=== PATIENT | female | born 1965 | race African-American/Black ===

== ENCOUNTER 2016-11-20 17:05 | Emergency (ER) | payer BC, OTHER ==
[~2016-11-20] VITALS: Ht 162.6 cm; Wt 131.1 kg
[~2016-11-20 17:05] MED LIST: AMLODIPINE-OLM1 EAC3 PO; HYDROCODONE-AP1 EAC6 PO; KEFLEX500 MG PO; PHENERGAN 25 MG25 M1 PO; VALIUM5 MG PO
[2016-11-20] MEDS ORDERED: NORCO 5-325 TA1 EACH PO (18:30)
== END 2016-11-20 19:00 | disposition home or self-care (01) ==
LOC: ER 17:05
DX: R07.89 Other chest pain (principal); I10 Essential (primary) hypertension; Z45.2 Encounter for adjustment and management of vascular access device; Z90.49 Acquired absence of other specified parts of digestive tract; Z85.3 Personal history of malignant neoplasm of breast; V43.52XA Car driver injured in collision with other type car in traffic accident, initial encounter; Y93.I9 Activity, other involving external motion; Y92.89 Other specified places as the place of occurrence of the external cause; Y99.8 Other external cause status

== ENCOUNTER 2017-03-30 12:18 | Inpatient (IN) | payer BC, OTHER ==
[~2017-03-30] VITALS: Ht 162.6 cm; Wt 135.2 kg
--- NOTE | ~2017-03-30 | 2DMMODE ---
[facility] [address] [place] [address] 2 D/M-MODE ECHOCARDIOGRAM Name: RICHY MCKENNA Room #: 451-P ADM IN M.R.#: [id number] Admission: 03/30/17 Attend Phys: Crista Curran Discharge: Date of : 67 Date of Service: 04/01/17 1029 Report #: [id number] THIS REPORT FOR: //name// APPROVED REPORT Study performed: 04/01/2017 08:39:58 EXAM: Comprehensive 2D, Doppler, and color-flow Echocardiogram Patient Location: Echo lab Room #: [facility] Status: routine BSA: 2.32 HR: 54 bpm BP: 184/97 mmHg Other Information Study Quality: Adequate Indications Dyspnea Chest Pain Hypertension/HDD 2D Dimensions LVEF(%): 62.69 (>50%) IVSd: 13.09 (7-11mm) LVOT Diam: 22.61 (18-24mm) LVDd: 43.88 mm PWd: 12.85 (7-11mm) Ascending Ao: 32.99 (22-36mm) LVDs: 29.11 (25-40mm) Aortic Root: 30.38 mm IVC: 14.00 mm Quigley's LVEF: 62.69 % Volumes Left Atrial Volume (Systole) Single Plane 4CH: 27.33 mL Single Plane 2CH: 48.81 mL LA ESV Index: 18.00 mL/m2 Aortic Valve AoV Peak Ameya.: 1.12 m/s AO Peak Gr.: 4.98 mmHg LVOT Max P.91 mmHg LVOT Max V: 1.11 m/s ANITA Vmax: 3.99 cm2 Mitral Valve E/A Ratio: 1.1 [facility] [place] [address] [place] [address] 2 D/M-MODE ECHOCARDIOGRAM Name: CLARISARICHY M Room #: 451-P [facility] IN [facility]#: [id number] Admission: 03/30/17 Attend Phys: Crista Curran Discharge: Date of : 67 Date of Service: 04/01/17 1029 Report #: [id number] MV Decel. Time: 248.96 ms MV E Max Ameya.: 0.81 m/s MV A Ameya.: 0.71 m/s MV PHT: 72.20 ms IVRT: 96.89 ms Pulmonary Valve PV Peak Ameya.: 0.84 m/s PV Peak Gr.: 2.85 mmHg Pulmonary Vein P Vein S: 0.40 m/s P Vein A: 0.20 m/s P Vein D: 0.36 m/s P Vein A Dur.: 87.7 msec P Vein S/D Ratio: 1.11 Left Ventricle The left ventricle is normal size. Mild concentric left ventricular hypertrophy. The left ventricular systolic function is normal. The left ventricular ejection fraction is within the normal range. LVEF is 60-65%. Grade II - pseudonormal filling dynamics. Right Ventricle The right ventricle is normal size. The right ventricular systolic function is normal. Atria The left atrium size is normal. The right atrium size is normal. Aortic Valve The aortic valve is normal in structure. No aortic regurgitation is present. There is no aortic valvular stenosis. Mitral Valve The mitral valve is normal in structure. Trace mitral regurgitation. No evidence of mitral valve stenosis. Tricuspid Valve The tricuspid valve is normal in structure. There is no tricuspid valve regurgitation noted. Pulmonic Valve The pulmonary valve is normal in structure. There is no pulmonic valvular regurgitation. Great Vessels The aortic root is normal in size. IVC is normal in size and [facility] [address] [place] [address] 2 D/M-MODE ECHOCARDIOGRAM Name: RICHY MCKENNA Abby Room #: 451-P [facility] IN M.R.#: [id number] Admission: 03/30/17 Attend Phys: Crista Curran Discharge: Date of : 67 Date of Service: 04/01/17 1029 Report #: [id number] collapses >50% with inspiration. Pericardium There is no pericardial effusion. <Conclusion> The left ventricle is normal size. Mild concentric left ventricular hypertrophy. The left ventricular systolic function is normal. The right ventricle is normal size. The left atrium size is normal. The aortic valve is normal in structure. Trace mitral regurgitation. <ELECTRONICALLY SIGNED> By: Rj Farah MD 04/01/17 1029 1029 1029 Rj Farah MD /INF
--- NOTE | ~2017-03-30 | EKG ---
[place] [address] [address] [facility] [place] [address] ELECTROCARDIOGRAM REPORT Name: RICHY MCKENNA Room #: 451-P [facility]..#: [id number] Admission: 03/30/17 Attend Phys: Crista Munguia Discharge: Date of : 67 Report #: [id number] THIS REPORT FOR: //name// [facility] ED Test Date: 2017-03-30 Test Time: 12:28:47 Pat Name: RICHY MCKENNA Department: Room: [facility] Gender: F Forensic Social Worker: Priyanka ARZATE : 1965 Requested By: Luke Blackburn Order Number: [id number] MD: Darell Johnson Measurements Intervals [place]is Rate: 74 P: 48 MA: 193 QRS: 22 QRSD: 85 T: 6 QT: 417 QTc: 463 Interpretive Statements Sinus rhythm No significant abnormality No previous ECG available for comparison Electronically Signed On 03-31-2017 9:41:40 CDT by Darell Johnson [email or web address] <ELECTRONICALLY SIGNED> By: Darell Johnson MD, [facility] 03/31/17 0941 1228 1228 Darell Johnson MD, FACC /EPI
--- NOTE | ~2017-03-30 | HC ---
[facility] [place] [address] CONSULTATION Name: RICHY MCKENNA Room #: 451-P [facility] M.R.#: [id number] Admission: 03/30/17 Attend Phys: Crista Munguia Discharge: Date of : 67 Report #: [id number] THIS REPORT FOR: //name// CC: Crista Sonsampson Barrios DATE OF SERVICE: 03/31/2017 INDICATION: Chest pains. HISTORY OF PRESENT ILLNESS: This is a pleasant 51-year-old female presenting with chest pains and shortness of breath. She was at work yesterday when she developed a discomfort. She describes a tightness across the chest area, nonradiating. She denies any history of palpitations, lightheadedness, or diaphoresis. It seems to be mildly reproducible with deep inspiration. The initial troponin levels are unremarkable. Her admitting EKG reveals sinus rhythm with no acute ST segment changes. The patient has a prior history of breast cancer, status post bilateral mastectomies. On the monitor, she is in sinus rhythm with a few episodes of sinus pause up to 3.8 seconds. She is clinically asymptomatic, denies any episodes of lightheadedness, dizziness, or syncope. PAST MEDICAL HISTORY: Hypertension and breast cancer, status post bilateral mastectomies, has completed chemotherapy this past December. ALLERGIES: None. MEDICATIONS AT HOME: Include amlodipine 10 mg, Benicar 40 mg, valium for anxiety p.r.n., and hydrocodone. SOCIAL HISTORY: Negative for tobacco use. FAMILY HISTORY: Negative for premature CAD. REVIEW OF SYSTEMS: A full 10-point review of systems performed. Only the pertinent positives and negatives are described in the HPI. PHYSICAL EXAMINATION: VITAL SIGNS: Blood pressure is 160/90 and heart rate is 75 beats per minute. GENERAL APPEARANCE: This is an overweight female, in no acute respiratory distress. HEAD AND EYES: Normocephalic. Sclerae are anicteric. ENT: Oral mucosa moist. NECK: Supple. LUNGS: Clear to auscultation. No wheezing. CARDIAC: Regular rate and rhythm, S1, S2 positive. No gallops. [facility] [address] [place] [address] CONSULTATION Name: RICHY MCKENNA Room #: 451-P [facility]..#: [id number] Admission: 03/30/17 Attend Phys: Crista Munguia Discharge: Date of : 67 Report #: [id number] ABDOMEN: Soft, nontender. Bowel sounds positive. EXTREMITIES: No cyanosis. No peripheral edema. ECG reveals sinus rhythm, otherwise unremarkable. LABORATORY VALUES: Serial troponin levels are negative. ASSESSMENT AND PLAN: 1. Chest pain syndrome, probably not ischemia related, we will await the results of her nuclear stress test. Other considerations include musculoskeletal, gastrointestinal, etc. 2. Sinus pause up to 3.8 seconds, clinically asymptomatic. 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 Since she is asymptomatic, there is no indication for a pacemaker. 3. Hypertension, elevated, resume her blood pressure medications. 4. Breast cancer, status post mastectomy. <ELECTRONICALLY SIGNED> By: Rj Farah MD 04/01/17 0811 1458 [id number] Rj aFrah MD /nt
[~2017-03-30 12:18] MED LIST changes: +NORCO 5-325 TA1 EACH PO
[2017-03-30 12:20] VITALS: BP 194/111
[2017-03-30] MEDS ORDERED: FISH OIL 1,001000 M2 PO (12:45)
[2017-03-30] MEDS ORDERED: VITAMIN D1000 UNI1 PO (12:46)
[2017-03-30 13:11] LABS: ABSOLUTE NEUTROPHILS 2.2 thou/uL (1.4-8.2); BASOPHILS 0.8 % (0.0-2.0); EOSINOPHILS 2.4 % (0.0-3.0); HEMATOCRIT 38.7 % (37.0-47.0); HEMOGLOBIN 12.7 gm/dL (12.0-15.0); LYMPHOCYTES 42.4 % (24.0-44.0); MCH 28.1 pg (26.0-34.0); MCHC 32.7 g/dL (28.0-37.0); MONOCYTES 6.8 % (1.0-8.0); PLATELET COUNT 281 thou/uL (150-400); POLYS 47.6 % (36.0-66.0); RBC 4.51 mil/uL (4.20-5.00); RDW 13.7 % (10.5-14.5); WBC 4.6 thou/uL (4.0-11.0)
[2017-03-30 13:17] LABS: MANUAL DIFF NO
[2017-03-30 13:21] LABS: ANION GAP 10 mmol/L (7-16); BUN 16 mg/dL (7-18); CALCIUM 8.8 mg/dL (8.5-10.1); CHLORIDE 105 mmol/L (98-107); CO2 25 mmol/L (21-32); CREATININE 0.9 mg/dL (0.6-1.0); GLUCOSE 99 mg/dL (74-106); POTASSIUM 3.9 mmol/L (3.5-5.1); SODIUM 140 mmol/L (136-145)
[2017-03-30 13:29] LABS: ALKALINE PHOSPHATASE 87 U/L (46-116); APTT 31.5 Seconds (24.5-32.8); PROTIME 10.2 Seconds (9.3-11.4); SGOT 21 U/L (15-37); TOTAL BILIRUBIN 0.2 mg/dL (<0.1-1.0); TOTAL PROTEIN 7.1 g/dL (6.4-8.2); TROPONIN-I < 0.04 ng/mL (<0.04-0.07)
[2017-03-30 13:55] LABS: ALBUMIN 3.4 g/dL (3.4-5.0); MAGNESIUM 1.9 mg/dL (1.8-2.4); SGPT 29 U/L (30-65)
[2017-03-30 15:10] VITALS: BP 132/72
[2017-03-30 17:10] VITALS: BP 146/92
[2017-03-30 18:12] VITALS: BP 170/87
[2017-03-30 19:04] VITALS: BP 158/85
[2017-03-31 00:30] VITALS: BP 156/69
[2017-03-31 03:18] LABS: ALBUMIN 3.2 g/dL (3.4-5.0); ANION GAP 5 mmol/L (7-16); BUN 10 mg/dL (7-18); CALCIUM 8.6 mg/dL (8.5-10.1); CHLORIDE 104 mmol/L (98-107); CO2 28 mmol/L (21-32); CREATININE 0.8 mg/dL (0.6-1.0); GLUCOSE 95 mg/dL (74-106); PHOSPHORUS 3.9 mg/dL (2.5-4.9); POTASSIUM 3.3 mmol/L (3.5-5.1); SODIUM 137 mmol/L (136-145); TROPONIN-I < 0.04 ng/mL (<0.04-0.07)
[2017-03-31 04:22] VITALS: BP 162/82
[2017-03-31 10:20] VITALS: BP 154/83
[2017-03-31 12:13] VITALS: BP 163/101
[2017-03-31 15:32] VITALS: BP 182/110
[2017-03-31 19:43] VITALS: BP 165/98
[2017-04-01 05:57] VITALS: BP 155/88
[2017-04-01 07:18] VITALS: BP 184/97
[2017-04-01 11:31] VITALS: BP 160/89
[2017-04-01 11:56] VITALS: BP 160/89
== END 2017-04-01 13:18 | disposition home or self-care (01) | DRG 313 ==
LOC: ER 12:18 → 4W 13:30 → EROBS 13:30 → 4W 17:14
PROVIDERS: Emergency Medicine; Hospitalist
DX: R07.89 Other chest pain (principal); Z68.43 Body mass index [BMI] 50.0-59.9, adult; I10 Essential (primary) hypertension; R00.1 Bradycardia, unspecified; M79.604 Pain in right leg; E66.9 Obesity, unspecified; Z85.3 Personal history of malignant neoplasm of breast; Z90.49 Acquired absence of other specified parts of digestive tract; Z90.13 Acquired absence of bilateral breasts and nipples; Z92.21 Personal history of antineoplastic chemotherapy; Z82.3 Family history of stroke
CPT/HCPCS: 10045

== ENCOUNTER 2017-06-08 13:27 | Emergency (ER) | payer BC, OTHER ==
[~2017-06-08] VITALS: Ht 162.6 cm; Wt 130.2 kg
[~2017-06-08 13:27] MED LIST changes: +FISH OIL 1,001000 M2 PO; +VITAMIN D1000 UNI1 PO
[2017-06-08] MEDS ORDERED: MOBIC15 MG PO (14:36)
[2017-06-08] MEDS ORDERED: VITAMIN E400 UNIT PO (14:42)
== END 2017-06-08 14:54 | disposition home or self-care (01) ==
LOC: ER 13:27
DX: M25.511 Pain in right shoulder (principal); I10 Essential (primary) hypertension; Z98.890 Other specified postprocedural states; Z85.3 Personal history of malignant neoplasm of breast

== ENCOUNTER 2018-06-05 15:03 | Emergency (ER) | payer BC, OTHER ==
[~2018-06-05] VITALS: Ht 162.6 cm; Wt 135.2 kg
[~2018-06-05 15:03] MED LIST changes: +MOBIC15 MG PO; +VITAMIN E400 UNIT PO
[2018-06-05] MEDS ORDERED: IBUPROFEN 600600 M1 PO (16:34)
[2018-06-05 17:02] VITALS: BP 130/82
== END 2018-06-05 17:02 | disposition home or self-care (01) ==
LOC: ER 15:03
DX: S93.492A Sprain of other ligament of left ankle, initial encounter (principal); S40.011A Contusion of right shoulder, initial encounter; I10 Essential (primary) hypertension; Z90.49 Acquired absence of other specified parts of digestive tract; Z85.3 Personal history of malignant neoplasm of breast; W10.9XXA Fall (on) (from) unspecified stairs and steps, initial encounter; Y92.89 Other specified places as the place of occurrence of the external cause; Y93.89 Activity, other specified; Y99.8 Other external cause status

== ENCOUNTER 2019-05-29 08:31 | Emergency (ER) | payer OTHER ==
[~2019-05-29] VITALS: Ht 165.1 cm; Wt 136.1 kg
[~2019-05-29 08:31] MED LIST changes: +IBUPROFEN 600600 M1 PO
[2019-05-29] MEDS ORDERED: NORCO 5-325 TA1 EAC1 PO (12:16)
[2019-05-29 12:59] VITALS: BP 146/94
== END 2019-05-29 13:00 | disposition home or self-care (01) ==
LOC: ER 08:31
DX: S82.435A Nondisplaced oblique fracture of shaft of left fibula, initial encounter for closed fracture (principal); S83.8X2A Sprain of other specified parts of left knee, initial encounter; I10 Essential (primary) hypertension; Z98.51 Tubal ligation status; Z90.49 Acquired absence of other specified parts of digestive tract; Z85.3 Personal history of malignant neoplasm of breast; W10.8XXA Fall (on) (from) other stairs and steps, initial encounter; Y93.89 Activity, other specified; Y92.89 Other specified places as the place of occurrence of the external cause; Y99.8 Other external cause status